=== PATIENT | male | born 1980 | race Caucasian/White ===

== ENCOUNTER 2016-08-23 18:02 | Emergency (ER) | payer MEDICAID ==
[~2016-08-23] VITALS: Ht 185.4 cm; Wt 119.0 kg
[~2016-08-23 18:02] MED LIST: NAPR-638
[2016-08-23 18:11] VITALS: Ht 185.4 cm; Wt 119.0 kg
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
[2016-08-23] MEDS ORDERED: NAPR-260 PO (19:58)
[2016-08-23] MEDS ORDERED: ACET500C5 PO (19:59)
[2016-08-23] MEDS ORDERED: CYCL-319 PO (20:00)
--- NOTE | 2016-08-23 20:23 | RADRPT ---
PROCEDURE: XR Cervical Spine. CLINICAL INDICATION: Neck pain TECHNIQUE: Three views of the cervical spine were performed. COMPARISON: None. FINDINGS: There is straightening of the normal cervical lordosis. The vertebral bodies are normal in mineralization, architecture and alignment. No fracture or osseou s lesion is identified. No subluxation is demonstrated. There is mild C5-6 degenerative disk disea se. This is associated with space narrowing, endplate sclerosis and spondylosis. The uncinate joint s are unremarkable. The facet joints are unremarkable. The soft tissues are normal. IMPRESSION: Straightening of the normal cervical lordosis Mild C5-6 degenerative disk disease. RPTAT: [facility] .Jim Abel MD, Date Time Electronically viewed and signed by .Jim Abel MD, on 08/23/2016 20:23 .B/
--- NOTE | 2016-08-23 20:25 | RADRPT ---
PROCEDURE: XR Lumbar Spine. CLINICAL INDICATION: Low back pain TECHNIQUE: 3 views of the lumbar spine are available for review COMPARISON: None available FINDINGS: There is normal mineralization. There is a 5 mm L4 on L5 anterolisthesis. No fracture or osseous l esion is identified. There is mild L4-S1 degenerative disk disease. This is associated with joint space narrowing, endplate sclerosis and spondylosis. There is moderate L4-S1 facet arthrosis. The soft tissues are unremarkable. IMPRESSION: 5 mm L4 on L5 anterolisthesis. Mild L4-S1 degenerative disk disease. Moderate L4-S1 facet arthrosis RPTAT: [facility] .Jim Abel MD, MD Date Time Electronically viewed and signed by .Jim Abel MD, on 08/23/2016 20:24 .B/
[2016-08-23] MEDS ORDERED: IBUPROFEN 600 MG TAB PO ONE (23:00)
[2016-08-23 23:32] VITALS: BP 119/79; PULSE 55; RESP 18; TEMP 97.7
== END 2016-08-24 00:01 | disposition home or self-care (01) ==
LOC: FTE 18:02
DX: S09.90XA Unspecified injury of head, initial encounter (principal); S19.9XXA Unspecified injury of neck, initial encounter; S39.92XA Unspecified injury of lower back, initial encounter; V43.62XA Car passenger injured in collision with other type car in traffic accident, initial encounter
CPT/HCPCS: 72040; 72100; Z7502; Z7610